=== PATIENT | male | born 1965 | race Hispanic/Latino ===

== ENCOUNTER 2023-10-21 12:02 | Inpatient (IN) | payer OTHER ==
[2023-10-21] VITALS (25 sets, daily range): BP systolic 117–151; BP diastolic 54–85; PULSE 67–80; RESP 10–24; O2SAT 92–94
[~2023-10-21] VITALS: Ht 167.6 cm; Wt 108.9 kg
[2023-10-21 12:28] LABS: BASOPHILS # (AUTO) 0.06 K/uL (0.00-0.20); BASOPHILS % (AUTO) 0.5 % (0.0-5.0); EOSINOPHILS # (AUTO) 0.22 K/uL (0.00-0.70); EOSINOPHILS % (AUTO) 1.8 % (0.0-8.0); HEMATOCRIT 44.3 % (42-54); IMMATURE GRANULOCYTE ABSOLUTE 0.07 K/uL (0-1); LYMPHOCYTES # (AUTO) 3.9 K/uL (1.0-4.8); MEAN CORPUSCULAR HGB CONC 34.3 g/dL (32.0-36.0); MEAN CORPUSCULAR VOLUME 84.4 fL (79-99); MONOCYTES # (AUTO) 0.8 K/uL (0.1-1.0); MONOCYTES % (AUTO) 6.4 % (3.0-13.0); NEUTROPHILS # (AUTO) 7.4 K/uL (1.8-7.7); NEUTROPHILS % (AUTO) 59.7 % (40.0-77.0); PLATELET COUNT (AUTO) 293 K/uL (130-400); RED BLOOD CELL COUNT(AUTO) 5.25 MIL/uL (4.50-6.20); RED CELL DISTRIBUTION WIDTH 13.2 % (11.0-15.5); WHITE BLOOD COUNT (AUTO) 12.4 K/uL (4.8-10.8)
[2023-10-21] MEDS: ASPIRIN 325MG TAB PO ONE (12:37)
[2023-10-21 12:42] LABS: CREATININE 1.1 mg/dL (0.5-1.3); POTASSIUM 4.5 mmol/L (3.5-5.1)
[2023-10-21 12:47] LABS: ALBUMIN 3.6 g/dL (3.5-5.0); BILIRUBIN,TOTAL 0.4 mg/dL (0.2-1.0); TOTAL PROTEIN, SERUM 8.2 g/dL (6.0-8.3)
[2023-10-21 12:48] LABS: APPEARANCE,URINE CLOUDY (CLEAR); BILIRUBIN,URINE NEGATIVE (NEGATIVE); COLOR,URINE YELLOW (YELLOW); GLUCOSE, URINE (UA) 30 mg/dL (NEGATIVE); KETONES,URINE 5 mg/dL (NEGATIVE); LEUKOCYTE ESTERASE ,URINE 250 Leu/uL (NEGATIVE); NITRATE,URINE NEGATIVE (NEGATIVE); OCCULT BLOOD,URINE LARGE (NEGATIVE); PROTEIN,URINE 100 mg/dL (NEGATIVE); UROBILINOGEN,URINE 0.2 mg/dL (0.2-1.0)
[2023-10-21 12:53] LABS: ADD UA MICROSCOPIC YES
[2023-10-21 13:04] LABS: BACTERIA,URINE FEW /HPF (None Seen); MUCUS,URINE MANY LPF (None Seen); RBC,URINE 26-50 /HPF (0-1); SQUAMOUS EPITHELIAL CELL,UR RARE /HPF (0-2); WBC,URINE 26-50 /HPF (0-1)
[2023-10-21] MEDS: NITROGLYCERIN 1GM OINT 1 INCH/1GM TD ONE (13:08)
[2023-10-21] MEDS ORDERED: ACETAMINOPHEN 500 MG TABLET PO PRN (14:00)
[2023-10-21] MEDS ORDERED: LABETALOL 20MG SYG IV PRN (14:00)
[2023-10-21] MEDS: CEFTRIAXONE 1G VIAL IVPB ONE (14:06)
[2023-10-21] MEDS: MORPHINE 2 MG SYG IVP ONE (14:07)
[2023-10-21] MEDS: AMLODIPINE 5 MG TAB PO SCH (14:07)
[2023-10-21] MEDS: ONDANSETRON 4MG INJ IVP PRN (14:07)
[2023-10-21 14:28] LABS: INR <= 0.93 (0.85-1.15); PROTHROMBIN TIME 10.9 SEC (9.6-11.6)
[2023-10-21 14:28] LABS: HEMOGLOBIN A1C 8.9 % (4.0-6.0)
[2023-10-21 14:30] LABS: PARTIAL THROMBOPLASTIN TIME 25.9 SEC (26.3-35.5)
[2023-10-21 14:53] LABS: CHOLESTEROL 166 mg/dL (<200); TRIGLYCERIDES 155 mg/dL (30-200)
[2023-10-21 14:54] LABS: HDL CHOLESTEROL 38 mg/dL (29-71); LDL DIRECT 111 mg/dL (0-99)
[2023-10-21] MEDS: METOPROLOL TARTRATE 1 MG/ML 5ML VIAL IV ONE (15:17)
[2023-10-21] MEDS: CLOPIDOGREL 300MG TAB PO ONE (15:22)
[2023-10-21] MEDS: HEPARIN 5,000 UNIT VIAL IV PRN (15:24)
[2023-10-21] MEDS ORDERED: 0.9% NACL 500ML IV.SOLN 500 ML IV SCH (15:30)
[2023-10-21] MEDS: HEPARIN 25,000 UNITS/250ML D5W 250 ML IV SCH (15:52)
[2023-10-21] MEDS: INSULIN HUMULIN R 100 UNIT/ML 3ML SQ SCH (16:30)
[2023-10-21] MEDS ORDERED: IOHEXOL 350 MG/ML 100ML INFUS..BTL IV ONE (16:34)
[2023-10-21] MEDS ORDERED: LIDOCAINE HCL 400MG/20ML VIAL ONE (16:34)
[2023-10-21] MEDS ORDERED: HEPARIN 10,000 UNIT/10ML (1,000 UNIT/ML) VIAL ONE (16:34)
[2023-10-21] MEDS ORDERED: ONDANSETRON 4MG INJ ONE (17:21)
[2023-10-21] MEDS ORDERED: CLOPIDOGREL 300MG TAB ONE (17:29)
[2023-10-21] MEDS ORDERED: ACETAMINOPHEN WITH CODEINE 1 TAB TAB PO PRN ×2 (17:30)
[2023-10-21] MEDS ORDERED: ONDANSETRON 4MG INJ IVP PRN (17:30)
[2023-10-21] MEDS ORDERED: TEMAZEPAM 30 MG CAP PO PRN (17:30)
[2023-10-21] MEDS ORDERED: NITROGLYCERIN 50MG/D5W 250ML 1 BOT IV PRN (17:30)
[2023-10-21] MEDS: MORPHINE 5 MG/ML VIAL (5MG OR GREATER DOSE) IVP SCH (17:30)
[2023-10-21] MEDS ORDERED: HEPARIN 25,000 UNITS/250ML D5W 250 ML IV SCH (18:30)
[2023-10-21 18:34] LABS: INR 0.95 (0.85-1.15); PROTHROMBIN TIME 11.3 SEC (9.6-11.6)
[2023-10-21] MEDS: FAMOTIDINE 20MG TAB PO SCH (20:36)
[2023-10-21] MEDS: METOPROLOL TARTRATE 25 MG TAB PO SCH (20:36)
[2023-10-21] MEDS: ATORVASTATIN 40 MG TABLET PO SCH (20:36)
[2023-10-21] MEDS: CEFTRIAXONE 1G VIAL IVPB SCH (20:37)
[2023-10-21] MEDS: 0.9%NACL 1000ML 1,000 ML IV SCH (21:52)
[2023-10-21 21:53] LABS: HEMATOCRIT 39.7 % (42-54)
[2023-10-21 22:20] LABS: CREATINE KINASE, TOTAL 855 U/L (21-232)
[2023-10-21] MEDS: MORPHINE 2 MG SYG IVP PRN (23:31)
[2023-10-21] MEDS: ONDANSETRON 4MG INJ IVP SCH (23:31)
[2023-10-22] VITALS (26 sets, daily range): BP systolic 112–150; BP diastolic 69–100; PULSE 71–99; RESP 10–30; O2SAT 95
[2023-10-22 03:47] LABS: MEAN CORPUSCULAR HEMOGLOBIN 29.2 pg (27.0-33.0); MEAN CORPUSCULAR HGB CONC 33.6 g/dL (32.0-36.0); MEAN CORPUSCULAR VOLUME 86.9 fL (79-99); RED BLOOD CELL COUNT(AUTO) 4.49 MIL/uL (4.50-6.20); RED CELL DISTRIBUTION WIDTH 13.6 % (11.0-15.5); WHITE BLOOD COUNT (AUTO) 12.1 K/uL (4.8-10.8)
[2023-10-22 04:07] LABS: BILIRUBIN,DIRECT 0.1 mg/dL (0.0-0.3); BILIRUBIN,TOTAL 0.5 mg/dL (0.2-1.0); CREATININE 0.9 mg/dL (0.5-1.3); MAGNESIUM 1.8 mg/dL (1.80-2.40); TOTAL PROTEIN, SERUM 7.1 g/dL (6.0-8.3)
[2023-10-22] MEDS: MAGNESIUM 2GM PREMIX 50ML 50 ML IV SCH (04:45)
[2023-10-22] MEDS: LISINOPRIL 10 MG TABLET PO SCH (08:01)
[2023-10-22] MEDS: CLOPIDOGREL 75MG TAB PO SCH (08:02)
[2023-10-22] MEDS: PANTOPRAZOLE 40 MG TAB DR PO SCH (08:02)
[2023-10-22] MEDS: ASPIRIN 81MG CHEW TAB PO SCH (08:02)
[2023-10-22] MEDS ORDERED: ASPIRIN 81 MG EC TAB PO SCH (09:00)
[2023-10-23] VITALS (7 sets, daily range): BP systolic 120–150; BP diastolic 74–97; PULSE 66–91; RESP 18–22; O2SAT 95–96
[2023-10-23 03:41] LABS: HEMATOCRIT 39.7 % (42-54); MEAN CORPUSCULAR HEMOGLOBIN 28.9 pg (27.0-33.0); MEAN CORPUSCULAR HGB CONC 33.2 g/dL (32.0-36.0); MEAN CORPUSCULAR VOLUME 87.1 fL (79-99); RED BLOOD CELL COUNT(AUTO) 4.56 MIL/uL (4.50-6.20); RED CELL DISTRIBUTION WIDTH 13.5 % (11.0-15.5); WHITE BLOOD COUNT (AUTO) 9.8 K/uL (4.8-10.8)
[2023-10-23 04:00] LABS: BILIRUBIN,TOTAL 0.5 mg/dL (0.2-1.0); POTASSIUM 4.1 mmol/L (3.5-5.1); TOTAL PROTEIN, SERUM 7.1 g/dL (6.0-8.3)
[2023-10-23] MEDS: METOPROLOL TARTRATE 50 MG TAB PO SCH (08:48)
[2023-10-23] MEDS ORDERED: LISI10TA24 PO (16:22)
[2023-10-23] MEDS ORDERED: CLOP-31 PO (16:22)
[2023-10-23] MEDS ORDERED: ASPI-1005 PO (16:22)
[2023-10-23] MEDS ORDERED: METO50 PO (16:22)
[2023-10-23] MEDS ORDERED: AMLO5TAB4 PO (16:22)
[2023-10-23] MEDS ORDERED: CEFD300C3 PO (16:22)
[2023-10-23] MEDS ORDERED: ATOR40TA69 PO (16:22)
[2023-10-23] MEDS ORDERED: NITR0.4T50 SL (16:23)
[2023-10-24 03:40] VITALS: BP 135/87; PULSE 88; RESP 20
[2023-10-24 07:00] VITALS: BP 136/87; PULSE 79; RESP 16
[2023-10-24 08:37] VITALS: O2SAT 98
[2023-10-24 11:00] VITALS: BP 138/85; PULSE 75; RESP 20
[2023-10-24 16:00] VITALS: BP 129/85; PULSE 84; RESP 20
== END 2023-10-24 09:50 | disposition home or self-care (01) | DRG 322 ==
LOC: EDH 12:02 → EDHIP 12:03 → UNDOADMIN 13:31 → EDHIP 13:31 → 2BH 15:16 → 2AH 10-22 13:16
PROVIDERS: ADMIT Internal Medicine; ATTEND Internal Medicine
PROC: 027034Z Dilation of Coronary Artery, One Artery with Drug-eluting Intraluminal Device, Percutaneous Approach (ICD-10-PCS; principal; 2023-10-21)
DX: I21.4 Non-ST elevation (NSTEMI) myocardial infarction (principal); N13.6 Pyonephrosis; I16.0 Hypertensive urgency; I10 Essential (primary) hypertension; E11.65 Type 2 diabetes mellitus with hyperglycemia; N20.0 Calculus of kidney; E66.01 Morbid (severe) obesity due to excess calories; E78.5 Hyperlipidemia, unspecified; I25.10 Atherosclerotic heart disease of native coronary artery without angina pectoris; I77.1 Stricture of artery; G47.33 Obstructive sleep apnea (adult) (pediatric); R31.0 Gross hematuria; E88.810 Metabolic syndrome; I25.2 Old myocardial infarction; Z82.49 Family history of ischemic heart disease and other diseases of the circulatory system; Z87.442 Personal history of urinary calculi; Z79.899 Other long term (current) drug therapy; Z68.38 Body mass index [BMI] 38.0-38.9, adult
CPT/HCPCS: 36415; 71045; 74176; 76770; 78700; 80048; 80053; 80061; 80076; 81001; 82550; 82948; 83036; 83735; 83880; 84443; 84484; 85014; 85018; 85025; 85027; 85347; 85610; 85730; 86850; 86900; 86901; 87088; 93005; 93306; 93454; A9562; C1769; C1887; C1894; C9606; G0378; J0696; J1644; J2270; J2405; J3475; J3490; Q9967; C1874; Q9965